=== PATIENT | female | born 1970 | race Two or more races ===

== ENCOUNTER → 2020-12-27 10:44 | Emergency (ER) | payer MEDICAID, OTHER ==
[~2020-12-27] VITALS: Ht 160 cm; Wt 91.2 kg
[~2020-12-27 10:44] MED LIST: KETOROLAC TROMETH 60MG/2ML VIAL IM ONE; ONDA-144 PO; ONDANSETRON ODT 4 MG TAB PO ONE; [UNRECOGNIZED DRUG - CODE] PO
[2020-12-27 11:26] VITALS: BP 150/105
== END | disposition home or self-care (01) ==
LOC: ER 10:44
DX: G43.909 Migraine, unspecified, not intractable, without status migrainosus (principal); I10 Essential (primary) hypertension
CPT/HCPCS: 96372; 99283; J1885; Q0162

== ENCOUNTER 2022-07-10 10:16 | Emergency (ER) | payer MEDICAID ==
[~2022-07-10] VITALS: Ht 167.6 cm; Wt 84.5 kg
[~2022-07-10 10:16] MED LIST changes: -KETOROLAC TROMETH 60MG/2ML VIAL IM ONE; -ONDANSETRON ODT 4 MG TAB PO ONE
[2022-07-10 10:36] LABS: Basophils # (auto) 0 10 ^3/uL (0-0.2); Basophils % (auto) 0.4 % (0.0-2.0); Eosinophils # (auto) 0.1 10 ^3/uL (0-0.8); Hemoglobin 14.1 g/dL (12.2-16.2); Monocytes # (auto) 0.5 10 ^3/uL (0-1.3)
[2022-07-10 10:50] LABS: Albumin 4.3 g/dL (3.4-5.0); Calcium 9.3 mg/dL (8.5-10.1); Magnesium 2.5 mg/dL (1.6-2.6); Potassium 3.9 mmol/L (3.5-5.1)
[2022-07-10 10:54] LABS: Bilirubin, Total 0.4 mg/dL (0.2-1.0); Total Protein 7.9 g/dL (6.4-8.2)
[2022-07-10 10:58] LABS: Eosinophils % (auto) 1.5 % (0.0-7.0); Lymphocytes # (auto) 2.7 10 ^3/uL (0.4-5.4); Lymphocytes % (auto) 37.6 % (10.0-50.0); Mean Corpuscular Hemoglobin 26.3 pg (28.0-32.0); Mean Corpuscular Hgb Conc. 34.4 g/dL (32.0-36.0); Mean Corpuscular Volume 76.5 fL (80.0-100.0); Monocytes % (auto) 6.7 % (0.0-12.0); Neutrophils # (auto) 3.9 10 ^3/uL (1.6-8.6); Neutrophils % (auto) 53.8 % (37.0-80.0); Nucleated Red Blood Cells % 0.3 %; Red Blood Cells 5.36 10^6/uL (4.0-5.20); Red Cell Distribution Width 13.2 % (11.8-14.3); White Blood Cell 7.2 10^3/uL (4.4-10.8)
[2022-07-10 11:08] LABS: INR 0.97 (0.9-1.15); Partial Thromboplastin Time 30.5 sec (24.6-33.4)
[2022-07-10 14:12] LABS: BUN/Creatinine Ratio 13.6 (10.0-20.0)
[2022-07-10] MEDS ORDERED: METOCLOPRAMIDE HCL 10 MG TAB PO ONE (15:45)
[2022-07-10] MEDS ORDERED: HYDROcodone-ACET 5/325MG TAB PO ONE (15:45)
[2022-07-10 16:50] VITALS: BP 133/86; PULSE 82; RESP 18; TEMP 98.4; O2SAT 98
== END 2022-07-11 16:50 | disposition home or self-care (01) ==
LOC: ER 10:16
DX: R51.9 Headache, unspecified (principal); I10 Essential (primary) hypertension
CPT/HCPCS: 36415; 71045; 80053; 83735; 83880; 84484; 85025; 85610; 85730; 93005; 99285; J8597

== ENCOUNTER 2024-03-18 23:57 | Emergency (ER) | payer MEDICAID ==
[~2024-03-18] VITALS: Ht 167.6 cm; Wt 95.4 kg
--- NOTE | 2024-03-19 00:15 | ED.PDOC ---
HPI Comments 54 year old female came to ER via EMS due to chest pain. Patient has history of hypertension, and recently her blood pressure has been uncontrolled despite medications. About 45 minutes prior to arrival, patient developed substernal chest pains, tight, intermittent, radiating down her arm. Noted to be hypertensive on scene, SBP >190. Patient was given aspirin and nitroglycerin and her blood pressure dropped to SBP 138. Since then patient has been complaining of headaches and dizziness as well. Patient did not look toxic at time of evaluation. Chief Complaint: Chest Pain Time Seen by MD: 00:14 Reviewed Notes: Nurses Notes, Detail Manager Notes Allergies: Coded Allergies: NO KNOWN ALLERGIES (Unverified , 12/27/20) Home Meds Active Scripts Ondansetron (Zofran) 4 Mg Tab, 4 MG PO BID for 10 Days, #20 TAB Prov:DEV AG 12/27/20 Mqnkwcwglq-Jgpvyahfsfoht-Ihecf (Javy 50-325-40 mg) 1 Tab Tab, 1 TAB PO BID for 10 Days, #20 TAB Prov:DEV AG 12/27/20 Information Source: Patient, Emergency Med Personnel Mode of Arrival: EMS Severity: Moderate Timing: Minutes Duration: Since onset Prehospital treatment: 12 Lead EKG, Oxygen, Treatment Location: Substernal Radiation: Arm (L) Quality: Tightness Onset: At Rest Cardiac Risk Factors: HTN PE Risk Factors: None History of: Similar pain in past Associated Signs and Symptoms: N/V Past Medical History PAST MEDICAL HISTORY: HTN Surgical History: Denies all surgeries [employer] FINISHER History: Denies all DE [employer] FINISHER Hx Family History Family History: Reviewed,noncontributory to illness Social History Smoker: Non-Smoker Alcohol: Denies ETOH Use Drugs: Denies Drug Use Lives In: Home Constitutional: denies: chills, diaphoresis, fatigue, fever, malaise, sweats, w eakness, others EENTM: denies: blurred vision, double vision, ear bleeding, ear discharge, ear drainage, ear pain, ear ringing, eye pain, eye redness, hearing loss, mouth pain, mouth swelling, nasal discharge, nose bleeding, nose congestion, nose pain, photophobia, tearing, throat pain, throat swelling, voice changes, others Respiratory: denies: cough, hemoptysis, orthopnea, SOB at rest, shortness of breath, SOB with excertion, stridor, wheezing, others Cardiovascular: reports: chest pain, left arm pain; denies: dizzy spells, diaphoresis, Dyspnea on exertion, edema, irregular heart beat, lightheadedness, palpitations, PND, syncope, others Gastrointestinal: denies: abdomen distended, abdominal pain, blood streaked bowels, constipated, diarrhea, dysphagia, difficulty swallowing, hematemesis, melena, nausea, poor appetite, poor fluid intake, rectal bleeding, rectal pain, vomiting, others Genitourinary: denies: abnormal vagina bleeding, burning, dyspareunia, dysuria, flank pain, frequency, hematuria, incontinence, pain, , vagina discharge, urgency, others Neurological: reports: dizziness, headache Musculoskeletal: denies: back pain, gout, joint pain, joint swelling, muscle pain, muscle stiffness, neck pain, others Integumetry: denies: bruises, change in color, change in hair/nails, dryness, laceration, lesions, lumps, rash, wounds, others Allergic/Immunocompromised: denies: Difficulty Healing, Frequent Infections, Hives, Itching, others Hematologic/Lymphatic: denies: anemia, blood clots, easy bleeding, easy bruising, swollen glands, others Endocrine: denies: excessive hunger, excessive sweating, excessive thirst, excessive urination, flushing, intolerance to cold, intolerance to heat, unexplained weight gain, unexplained weight loss, others Psychiatric: denies: anxiety, bipolar disorder, depression, hopeless, panic disorder, schizophrenia, sleepless, suicidal, others Physical Exam General Appearance: Mild Distress (Moderate distress due to remnant chest pain concerns.), Normal HEENT: Normal ENT Inspection, Pharynx Normal, TMs Normal Neck: Full Range of Motion, Non-Tender, Normal, Normal Inspection Respiratory: Chest Non-Tender, Lungs Clear, No Accessory Muscle Use, No Respiratory Distress, Normal Breath Sounds, Other (Unremarkable auscultation bilateral lung shelby.) Cardiovascular: No Edema, No JVD, No Murmur, No Gallop, Normal Peripheral Pulses, Regular Rate/Rhythm, Other (Unremarkable cardiac evaluation) Breast Exam: Deferred Gastrointestinal: No Organomegaly, Non Tender, No Pulsatile Mass, Normal Bowel Sounds, Soft Genitalia: Deferred Pelvic: Deferred Rectal: Deferred, Heme Control Appropriate Extremities: No calf tenderness, Normal capillary refill, Normal inspection, Normal range of motion, Non-tender, No pedal edema Musculoskeletal : Apperance: Normal Neurologic: Alert, No Motor Deficits, Normal Affect, Normal Mood, No Sensory Deficits Cerebellar Function: Normal Reflexes: Normal Skin: Dry, Normal Color, Warm Lymphatic: No Adenopathy EKG EKG : Pulse Rate (adult): 98 Cardiac Rhythm: NSR Was a procedure done? Was a procedure done?: No CP Differential Dx Differential Diagnosis: Angina, Anxiety / Panic Attack Differential Diagnosis: Angina, Chest Wall Pain, Costochondritis, Myocardial Infarction X-Ray, Labs, Meds, VS Vital Signs Date Time Temp Pulse Resp B/P (MAP) Pulse Ox O2 Delivery O2 Flow Rate FiO2 03/19/24 00:15 98 03/19/24 00:08 97.6 100 16 138/86 (103) 96 Lab Test 03/19/24 01:38 03/19/24 00:27 Range/Units Troponin I High Sensitivity Pending < 3 L </=34 ng/L White Blood Count 7.3 4.4-10.8 10^3/uL Red Blood Count 5.06 4.0-5.20 10^6/uL Hemoglobin 13.2 12.2-16.2 g/dL Hematocrit 40.0 36.0-46.0 % Mean Corpuscular Volume 78.9 L 80.0-100.0 fL Mean Corpuscular Hemoglobin 26.1 L 28.0-32.0 pg Mean Corpuscular Hemoglobin Concent 33.0 32.0-36.0 g/dL Red Cell Distribution Width 13.0 11.8-14.3 % Platelet Count 282 140-450 10^3/uL Mean Platelet Volume 7.8 6.9-10.8 fL Neutrophils (%) (Auto) 38.2 37.0-80.0 % Lymphocytes (%) (Auto) 53.5 H 10.0-50.0 % Monocytes (%) (Auto) 5.8 0.0-12.0 % Eosinophils (%) (Auto) 1.9 0.0-7.0 % Basophils (%) (Auto) 0.6 0.0-2.0 % Neutrophils # (Auto) 2.8 1.6-8.6 10 ^3/uL Lymphocytes # (Auto) 3.9 0.4-5.4 10 ^3/uL Monocytes # (Auto) 0.4 0-1.3 10 ^3/uL Eosinophils # (Auto) 0.1 0-0.8 10 ^3/uL Basophils # (Auto) 0 0-0.2 10 ^3/uL Nucleated Red Blood Cells 0.2 % D-Dimer, Quantitative 0.28 0.0-0.49 mg/L FEU Sodium Level 139 136-145 mmol/L Potassium Level 4.0 3.5-5.1 mmol/L Chloride Level 104 98-107 mmol/L Carbon Dioxide Level 25 20-31 mmol/L Anion Gap 10 5-15 Blood Urea Nitrogen 14 9-23 mg/dL Creatinine 0.96 0.550-1.02 mg/dL Glomerular Filtration Rate Calc 71 >90 mL/min BUN/Creatinine Ratio 14.6 10.0-20.0 Serum Glucose 153 H 74-106 mg/dL Calcium Level 10.4 8.7-10.4 mg/dL Total Bilirubin 0.2 0.2-1.0 mg/dL Aspartate Amino Transferase (AST) 31 13-40 U/L Alanine Aminotransferase (ALT) 36 7-40 U/L Alkaline Phosphatase 110 46-116 U/L B-Type Natriuretic Peptide 4.15 0-100 pg/mL Total Protein 7.2 5.7-8.2 g/dL Albumin 4.7 3.2-4.8 g/dL CHEST RADIOGRAPH Indication: Chest pain Technique: Single frontal view of the chest was obtained COMPARISON: XY CHEST PORTABLE on DOS: 07/10/22 FINDINGS: Lines and Tubes: None Lungs: Clear. Pleura: No effusion. No pneumothorax. Cardiomediastinal contours: Unremarkable Bones: Unremarkable IMPRESSION: No abnormality. X-Ray, Labs, Meds, VS Comment All studies performed the ED were evaluated by me personally. Serum laboratories were unremarkable for any systemic process or elevated troponin concerns. Patient's EKG revealed a sinus rhythm with a rate of 93. Left anterior fascicular block was noted as well as abnormal R-wave progression. LA interval 148 and QT interval of 357. Chest x-ray was unremarkable for any acute pulmonary consolidation or intrapulmonary concern. Patient is experiencing an unknown cause of her chest pain concerns. Advised patient maintain tighter control of her blood pressure and additionally, follow up with primary care provider for discussions related to today's visit and blood pressure management. Time of 1ST Reevaluation: 01:54 Reevaluation 1ST: Improved Consultation: PCP, Cardiology Patient Education/Counseling: Diagnosis, Treatment Family Education/Counseling: Diagnosis, Treatment Departure 1 Departure Time of Disposition: 01:54 Impression: Primary Impression: Chest pain Disposition: HOME / SELF CARE / HOMELESS Condition: Stable Additional Instructions: Advised patient utilize her blood pressure medication as directed by her primary care provider. Emergent medication to be utilize as needed. Patient should follow up with primary care provider for discussions related to today's visit and improved blood pressure management. e-Prescriptions Clonidine Hydrochloride (Clonidine Hcl) 0.2 Mg Tab 1 TAB PO BIDP PRN, #15 TAB 0 Refills To be used if systolic pressures above 160 or diastolic pressures above 90. Prov: ANTOINETTE COLLIER PAC 03/19/24 Discharged With: Self, Friend Critical Care Note Critical Care Time?: No Stability Stability form required: No Heart Score Heart Score: Heart Score Response (Comments) Value History Moderate Suspicious 1 EKG Normal 0 Age 45-64 1 Risk Factors 1 or 2 risk factors 1 Troponin Normal limit 0 Total 3 I personally scribed for ANTOINETTE COLLIER PAC ([email or web address]) on 03/19/24 at 00:15. Electronically submitted by Jacinto Morse ([employer]). I personally scribed for ANTOINETTE COLLIER PAC ([email or web address]) on 03/19/24 at 01:08. Electronically submitted by Jacinto Morse ([employer]). ANTOINETTE COLLIER PAC Mar 19, 2024 00:15
[2024-03-19 00:36] LABS: Basophils # (auto) 0 10 ^3/uL (0-0.2); Basophils % (auto) 0.6 % (0.0-2.0); Eosinophils # (auto) 0.1 10 ^3/uL (0-0.8); Eosinophils % (auto) 1.9 % (0.0-7.0); Hemoglobin 13.2 g/dL (12.2-16.2); Lymphocytes # (auto) 3.9 10 ^3/uL (0.4-5.4); Lymphocytes % (auto) 53.5 % (10.0-50.0); Mean Corpuscular Hemoglobin 26.1 pg (28.0-32.0); Mean Corpuscular Volume 78.9 fL (80.0-100.0); Monocytes # (auto) 0.4 10 ^3/uL (0-1.3); Monocytes % (auto) 5.8 % (0.0-12.0); Neutrophils # (auto) 2.8 10 ^3/uL (1.6-8.6); Neutrophils % (auto) 38.2 % (37.0-80.0); Nucleated Red Blood Cells % 0.2 %; Platelet Count (auto) 282 10^3/uL (140-450); Red Blood Cells 5.06 10^6/uL (4.0-5.20); White Blood Cell 7.3 10^3/uL (4.4-10.8)
--- NOTE | 2024-03-19 00:42 | DVH ---
CHEST RADIOGRAPH Indication: Chest pain Technique: Single frontal view of the chest was obtained COMPARISON: XY CHEST PORTABLE on DOS: 07/10/22 FINDINGS: Lines and Tubes: None Lungs: Clear. Pleura: No effusion. No pneumothorax. Cardiomediastinal contours: Unremarkable Bones: Unremarkable IMPRESSION: No abnormality.
[2024-03-19 00:52] LABS: Alanine Aminotransferase 36 U/L (7-40); Albumin 4.7 g/dL (3.2-4.8); Alkaline Phosphatase 110 U/L (46-116); Aspartate Aminotransferase 31 U/L (13-40); Blood Urea Nitrogen 14 mg/dL (9-23); Chloride 104 mmol/L (98-107); Sodium 139 mmol/L (136-145); Total Protein 7.2 g/dL (5.7-8.2)
[2024-03-19 00:53] LABS: Bilirubin, Total 0.2 mg/dL (0.2-1.0)
[2024-03-19 00:54] LABS: Anion Gap 10 (5-15)
[2024-03-19 00:55] LABS: Carbon Dioxide 25 mmol/L (20-31)
[2024-03-19 00:58] LABS: Calcium 10.4 mg/dL (8.7-10.4)
[2024-03-19 00:59] LABS: BUN/Creatinine Ratio 14.6 (10.0-20.0)
[2024-03-19 01:01] LABS: Glucose 153 mg/dL (74-106)
[2024-03-19] MEDS ORDERED: CLON0.2T PO (01:55)
[2024-03-19 02:20] VITALS: BP 157/111; TEMP 99
[2024-03-19 02:24] VITALS: PULSE 99; RESP 16; O2SAT 97
--- NOTE | 2024-03-19 07:14 | ECG ---
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
== END 2024-03-19 02:29 | disposition home or self-care (01) ==
LOC: EDUNIT# 23:57 → EDBD 23:57 → ER 03-19 00:17
DX: R07.89 Other chest pain (principal); I10 Essential (primary) hypertension; Z79.899 Other long term (current) drug therapy
CPT/HCPCS: 36415; 71045; 80053; 83880; 84484; 85025; 85379; 93005